=== PATIENT | female | born 1990 | race Caucasian/White ===

== ENCOUNTER → 2016-09-19 07:00 | Day surgery (SDC) | payer OTHER ==
[2016-09-19 06:34] LABS: Manual Entry Verification CAR0052; UR Preg Internal Control QC Line Present; UR Preg Kit Lot# 6060104
[~2016-09-19 07:00] MED LIST: Buffered Lidocaine 1% SYR 3ML* 3 ML/SYR SYRINGE INTRADERM ONE; Buffered Lidocaine 1% SYR 3ML* 3 ML/SYR SYRINGE ONE; DiMENhydriNATE IV* 50 MG/ML VIAL IV PUSH PRN; DiMENhydriNATE IV* 50 MG/ML VIAL ONE; Famotidine IV* 10 MG/ML 2 ML (20 mg) IV ONE; Famotidine IV* 10 MG/ML 2 ML (20 mg) ONE; HYDROcodone/ACETAMIN 5-325 MG* 1 TAB ONE; Ibuprofen TAB* 400 MG ONE; Ibuprofen TAB* 400 MG PO ONE; Lidocaine 2% MPF* 2 ML VIAL ONE; Metoclopramide TAB* 10 MG ONE; Metoclopramide TAB* 10 MG PO ONE; Propofol* 10 MG/ML 20 ML BTL IV PUSH ONE; Sodium Citrate/Citric Acid* 15 ML UDC ONE; Sodium Citrate/Citric Acid* 15 ML UDC PO ONE; ceFAZolin 2 GM PREMIX (*) 2 GM/50 ML BAG IVPB ONE; fentaNYL* 50 MCG/ML 2 ML VIAL (100 MCG VIAL) ONE; oxyCODONE/Acetamin 5/325 MG* TAB PO PRN
[2016-09-19] MEDS: fentaNYL* 50 MCG/ML 2 ML VIAL (100 MCG VIAL) IV PRN ×2 (09:23→09:35)
[2016-09-19 10:23] VITALS: BP 98/84
--- NOTE | 2016-09-21 15:26 | OP ---
OPERATIVE NOTE: DATE OF OPERATION: 09/19/16 DATE OF : 89 SURGEON: Lenin Keith MD. PMO CONSULTANT: DELANEY Padilla. ANESTHESIA: General anesthesia. PRE-OP DIAGNOSIS: Left cubital tunnel syndrome. POST-OP DIAGNOSIS: Left cubital tunnel syndrome. OPERATIVE PROCEDURE: Left ulnar nerve in situ decompression, cubital tunnel. 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 The patient's history goes back to 2011, at which point she bumped the medial aspect of her left elb ow against a washing machine. The patient was seen by Dr. Roy, who diagnosed her with an ulnar nerve contusion. She was treated with splinting, NSAIDs, and Neurontin. The pain bothered her long enough that an EMG was ordered, which showed no changes. Eventually, the patient's symptoms of numb ness and tingling resolved. However, the patient then presented to me in the of 2015 with 12 months of recurrence of these symptoms, namely numbness of the small finger, left. We treated the patient with nighttime splinting and NSAIDs without any improvement. I did prescribe the patient a Medrol Dosepak, which made these symptoms disappear entirely while she was on it for 6 days. As julianna n as she came off it, the symptoms returned. The patient's symptoms were bad enough that she was dr opping objects. She denied any neck or wrist pain, but did describe medial elbow pain. Physical ex am demonstrated a positive cubital tunnel Tinel's sign. She also had a positive elbow flexion test. She had some generalized tenderness to palpation about the cubital tunnel. She also had medial epi condyle tenderness to palpation, but that was symmetric with contralateral right elbow medial epicon dyle tenderness to palpation. She had no tenderness to palpation of the tendons, proximal on the me dial aspect of the elbow, and no pain with resisted wrist flexion, finger flexion, or forearm pronat ion. EMG nerve conduction did not show any changes. On exam, she had decreased sensation to light about the small finger as well as the ulnar aspect of the hand and inconsistent decrease sensation a bout the ulnar aspect of the ring finger. However, with 2 point discrimination testing, there was a subtle difference between the small finger and remainder of her fingers. Her 2-point discrimination was approximately 4 mm on the other fingers of that left hand versus about 5 mm of the small finger . The patient opted for surgical management. We discussed the benefits, risks, and possible compli cations of the surgery including the nerve and blood vessel injury. The patient had negative Spurli ng's test and no pain with full range of motion of the neck and no tenderness to palpation in the Gu yon's tunnel in the left wrist. ANTIBIOTICS: Ancef 2 g IV. IV FLUIDS: Please see anesthesia note. TOURNIQUET TIME: Approximately 43 minutes at 250 mmHg. ESTIMATED BLOOD LOSS: Minimal. COMPLICATIONS: None. SPECIMENS: None. IMPLANTS: None. DESCRIPTION OF PROCEDURE: Preoperative written consent. Operative extremity was marked in preopera tive holding. The patient was taken back to the operating room and sedated and intubated on the str etcher lying supine in the operating room. A hand table was attached. A non-sterile proximal upper arm tourniquet was placed. The left upper extremity was prepped and draped. Surgical time-out was performed. A big towel bump was placed under the medial aspect of the left elbow and the elbow was f lexed to 90 degrees and the forearm supinated. Esmarch was applied and the tourniquet was elevated to 250 mmHg. A skin incision was marked, centered about the elbow, midway between the medial epicon dyle and the olecranon tip. This was 7 cm in length, as measured at the end of the operation. Skin and superficial most subcutaneous tissue were incised with a #15 blade. Spreading dissection with scissors was then used to spread more deep towards the ulnar nerve, which was palpated. Medial ante brachial cutaneous nerve was looked for in the distal aspect of the incision, but was not encountere d. I dissected down to the ulnar nerve. Visualized Lee's ligament. There was some thickening a bout the Lee's ligament and the roof of the cubital tunnel itself. Using scissors, I incised th e Lee's ligament and the roof of the cubital tunnel. No obvious flattening or distortion of the nerve, although there was seeming increased vascularity compared to average. I decompressed proxim ally up to the arcade of [place]. I decompressed distally to the point where the nerve dove betwe en the 2 heads of the FCU. The nerve was clearly decompressed from 5 cm proximal to 5 to 7 cm dista l to the medial epicondyle. I passively ranged the forearm and there was no subluxation whatsoever of the ulnar nerve. Therefore, there was no need for an anterior subcutaneous transposition of the ulnar nerve irrigation. Irrigation. Bipolar had been used may be once during the case for a tiny v essel and was not required at this point, as there was no bleeding whatsoever. The subcutaneous tis rocael was closed with buried simple stitches using Vicryl 3-0 suture. The subcuticular layer was clos ed with a running stitch using Monocryl 4-0 suture. Steri-Strips were then placed without benzoin. Xeroform followed by 4x4s, followed by ABD, followed by sterile Webril. Much sterile Webril was us ed followed by two 4-inch James bandages. The tourniquet was dropped. The patient was provided with a simple sling for comfort. The patient was awakened, extubated, and brought to the PACU. DISPOSITION: The patient was to be discharged home when medically stable. My instructions to the p atient were to remove the sling in the next several hours after the procedure when she was comfortab le. The patient had no limitations with the left upper extremity with the exception of no lifting m ore than 10 pounds. We prescribed Percocet for pain control and Keflex 7-day course for infection p rophylaxis. The patient will follow up with me in clinic in 10 to 14 days postoperatively for a wou nd check. [id number]/[id number] #: [id number]
== END | disposition home or self-care (01) ==
LOC: OR 07:00
PROVIDERS: ATTEND Orthopaedic Surgery
DX: G56.22 Lesion of ulnar nerve, left upper limb (principal)
CPT/HCPCS: 81025; A9270-GY; J0690; J1240; J2704; J3010

== ENCOUNTER 2018-04-12 16:36 | Emergency (ER) | payer OTHER ==
[2018-04-12 17:02] VITALS: BP 103/75
[2018-04-12] MEDS ORDERED: Meclizine TAB* 12.5 MG PO ONE (17:12)
--- NOTE | 2018-04-12 17:12 | UC ---
Dizzy HPI HPI Summary: 27 yo female presents with dizziness. 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 [place] like the room was spinning. She went to lay down and ended up falling asleep for an hour or so. When she woke up she was still dizzy. Her boyfriend then brought her to . Currently she tells me that her dizziness is improving, but still present. She took her first dose of progesterone today for infertility treatments about 3 hours before the dizziness began. She denies headache, vision changes, weakness, numbness, tingling, pain, SOB, chest pain, n/v. - History Of Current Complaint Chief Complaint: UCDizziness Stated Complaint: DIZZINESS Time Seen by Provider: 04/12/18 17:11 Hx Obtained From: Patient Hx Last Menstrual Period: 03/30/18 Onset/Duration: Sudden Onset Severity Currently: None Pain Intensity: 0 - Allergies/Home Medications Allergies/Adverse Reactions: Allergies Allergy/AdvReac Type Severity Reaction Status Date / Time Adhesive Tape Allergy REDNESS, Verified 04/12/18 17:02 ITCHY egg Allergy Heartburn Verified 04/12/18 17:02 Milk Containing Products Allergy Heartburn Verified 04/12/18 17:02 onion Allergy Heartburn Verified 04/12/18 17:02 peanut Allergy Heartburn Verified 04/12/18 17:02 wheat Allergy Heartburn Verified 04/12/18 17:02 RYE Allergy Severe Heartburn Uncoded 04/12/18 17:02 Home Medications: Home Medications Progesterone, Micronized [Progesterone] 1 tab PO BID 04/12/18 [History Confirmed 04/12/18] PMH/Surg Hx/FS Hx/Imm Hx - Additional Past Medical History Additional PMH: None Previously Healthy: Yes - Surgical History Surgical History: Yes Surgery Procedure, Year, and Place: tonsillectomy; mole removal FOOT AND RIGHT ARM, 05/19; nasal fractures repaired,X2 , EAR TUBES 1993, wisdom teeth, 2005, laparoscopic cystectomy 12/03/17 - Family History Known Family History: Positive: None - Social History Occupation: Employed Full-time Lives: With Family Alcohol Use: Rare Alcohol Amount: 1 PER MONTH Substance Use Type: None Smoking Status (MU): Never Smoked Tobacco Have You Smoked in the Last Year: No Review of Systems Constitutional: Negative Skin: Negative Eyes: Negative ENT: Negative Respiratory: Negative Cardiovascular: Negative Gastrointestinal: Negative Genitourinary: Negative Motor: Negative Neurovascular: Negative Musculoskeletal: Negative Neurological: Other - Dizziness Psychological: Negative All Other Systems Reviewed And Are Negative: Yes Physical Exam - Summary Physical Exam Summary: GENERAL: NAD. WDWN. No pain distress. SKIN: No rashes, sores, or open wounds. HEENT: Head: AT/NC Eyes: PERRLA. EOM intact. Conjunctiva clear without inflammation or discharge. No nystagmus. Ears: Hearing grossly normal. TMs intact, no bulging, erythema, or edema. Nose: Nasal mucosa pink and moist. NTTP maxillary and frontal sinus. Throat: Posterior oropharynx without exudates, erythema, or tonsillar enlargement. Uvula midline. NECK: Supple. Nontender. No lymphadenopathy. CHEST: CTAB. No r/r/w. No accessory muscle use. Breathing comfortably and in no distress. CV: RRR. Without m/r/g. Pulses intact. Brisk cap refill. ABDOMEN: Soft. NTTP. No distention or guarding., No organomegaly. No CVA tenderness. Bowel sounds present MSK: FROM in B/L UEs and LEs with symmetric strength. NEURO: A&Ox3. 3 word recall, remote, recent memory, ability to follow 2-step directions, and attention intact. CN II XII grossly intact. Kxherp-zc-yeeg are intact. Gait with normal base. Romberg: maintains balance, no pronator drift. Normal speech. No facial drooping. PSYCH: Age appropriate behavior. Triage Information Reviewed: Yes Vital Signs: Initial Vital Signs Temp 98.1 F 04/12/18 16:59 Pulse 89 04/12/18 16:59 Resp 18 04/12/18 16:59 BP 103/75 04/12/18 16:59 Pulse Ox 100 04/12/18 16:59 Laboratory Tests 04/12/18 04/12/18 17:43 17:54 POC Glucose (mg/dL) 101 H POC Urine Color Yellow POC Urine Clarity Clear POC Urine pH 7.0 POC Ur Specif [place] 1.015 POC Urine Protein Negative POC Ur Glucose (UA) Negative POC Urine Ketones Negative POC Urine Blood Trace-intact A POC Urine Nitrite Negative POC Urine Bilirubin Negative POC Urine Urobilinogen 0.2 POC U Leukocyte Esteras Negative Vital Signs Reviewed: Yes Dizzy Course/Dx - Course Course Of Treatment: EKG 72bpm NSR No ST changes as read by Dr. Smith. Glucose WNL. POSITIVE test. UA negative. Meclizine was givin in the clinical course. Pt reported still improving dizziness. She tells me that she is on medication and has had positive tests in the past that were false positive - she gets routine blood work from her fertility doctor out of [place]. I suspect her dizziness is related to her new medication that she started earlier today. I advised her to contact the doctor of out [place] that prescribed this medication to discuss her adverse reaction and her positive test. Pt was agreeable with plan. - Differential Dx/Diagnosis Provider Diagnoses: Dizziness Discharge - Sign-Out/Discharge Documenting (check all that apply): Patient Departure - Discharge Plan Condition: Stable Disposition: HOME Patient Education Materials: Dizziness (ED) Forms: *Work Release Referrals: No Primary Care Phys,NOPCP [Primary Care Provider] - Additional Instructions: If you develop a fever, shortness of breath, chest pain, new or worsening symptoms - please call your PCP or go to the ED. 1) I believe your dizziness that you experienced today is due to your new medication - please call the doctor that prescribed this for you to discuss if you should continue this - Billing Disposition and Condition Condition: STABLE Disposition: Home
== END 2018-04-12 18:05 | disposition home or self-care (01) ==
LOC: UCEAST 16:36
DX: R42 Dizziness and giddiness (principal); Z91.012 Allergy to eggs; Z91.011 Allergy to milk products; Z91.010 Allergy to peanuts; Z91.018 Allergy to other foods; Z91.048 Other nonmedicinal substance allergy status
CPT/HCPCS: 81003; 84702; 93005; 99212; A9270-GY; G0463

== ENCOUNTER 2019-05-26 18:08 | Inpatient (IN) | payer OTHER ==
[2019-05-26] MEDS ORDERED: Lactated Ringers 1000 ML Bag* 1,000 ML IV ONE (19:50)
[2019-05-26] MEDS ORDERED: Promethazine INJ(RESTRICTED)* 25 MG/ML 1 ML VIAL IV ONE (19:50)
[2019-05-26] MEDS ORDERED: Buffered Lidocaine 1% SYRIN* 1 ML/SYRINGE INTRADERM ONE (19:50)
[2019-05-26] MEDS ORDERED: Nalbuphine* 10 MG/ML 1 ML VIAL IV ONE (19:50)
[2019-05-26] MEDS ORDERED: Dinoprostone* 10 MG VAG.SUPP VAGINAL ONE (19:50)
--- NOTE | 2019-05-26 19:58 | HP ---
General Information - Reason for Visit Here for ripening/IOL for IVF - General Information Maternal Age: 28 Grav: 1 Para: 0 SAB: 0 IEA: 0 Estimated Due Date: 05/22/19 Determined By: LMP Gestational Age in Weeks/Days: 40 12/12 Maternal Blood Type and Rh: A Positive - Results this Serology/RPR Result: Non-Reactive Rubella Result: Immune HBsAg Result: Negative HIV Result: Negative GBS Culture Result: Negative Past Medical History Delivery History: See Records Delivery History Comment: no prior deliveries Pertinent Past Medical History: See Records Past Medical History Comment: Food allergies - milk, wheat, onion, peanut Ulcers - eosiniphilic esophagitic Endometriosis PCOS Pertinent Past Surgical History: See Records Past Surgical History Comment: Bilateral myringotomy -1993 Tonsillectomy - 07/2008 [place] tooth extraction Nose surgery x 2 Mole removal - 2007, 2011, 2012 Left elbow, nerve damage repair - 09/2016 Laparascopic hysteroscopy - 2016 (endometriosis) Pertinent Family History: See Records Family History Comment: Mother: asthma, ulcers, thyroid disease - Antepartal Records Antepartal Records: Reviewed, Complicated by: - IVF , rubella nonimmune Review of Systems Constitutional: Comfortable CV Complaint: No Respiratory: Shortness of Breath: No Gastrointestinal: No Nausea/Vomiting, Normal Bowel Movement Genitourinary: No Dysuria, No Bleeding, No Leaking Fluid Musculoskeletal: No Epigastric Pain Neurological: No Visual Changes, Headache - described as mild. has not taken anything for it Movement: Normal Exam Allergies/Adverse Reactions: Allergies Adhesive Tape Allergy (Verified 05/26/19 19:33) REDNESS, ITCHY egg Allergy (Verified 05/26/19 19:33) Heartburn Milk Containing Products Allergy (Verified 05/26/19 19:33) Heartburn onion Allergy (Verified 05/26/19 19:33) Heartburn peanut Allergy (Verified 05/26/19 19:33) Heartburn wheat Allergy (Verified 05/26/19 19:33) Heartburn RYE Allergy (Severe, Uncoded 05/26/19 19:33) Heartburn B/P: 129/85, P: 90, R: 16, T: 99.3 - Measurements Height: 5 ft 4 in Weight: 143 lb Weight in lbs: [id number] Body Mass Index (BMI): 24.5 Pre- Weight: 114 lb Weight Gained This : 29 lbs and 0 ozs - Exam Breast: Breast Exam Deferred CVA: No CVA Tenderness Extremities: No Edema Heart: Normal Rhythm/Heart Sounds HEENT: No Significant Findings Lungs: Clear Bilaterally Reflexes: DTR 2+ Thyroid: No Thyromegaly - Abdominal Exam Abdomen Exam: Non-Tender, Fundal Height Consistent with Dates - Ultrasound/Biophysical Profile Ultrasound Status: Not Done Targeted Exam Findings See L&D Outpatient Visit Provider Note for Findings: N/A Estimated Weight: 7.5 lb by josefina'chadwick Cervical Exam: Fingertip Effacement: 50% Station: -1 Presenting Part: Vertex Membrane Status: Intact Bleeding/Discharge: None EFM Findings - External Monitor Findings Baseline Heart Rate: 120 External Monitor Findings: Accelerations Present, No Pattern of Variable or Late Decelerations, Variability Moderate, Baseline Stable Contractions: None Assessment/Plan - Assessment A: IUP at 40 4/7 weeks Category I FHR, no evidence of metabolic acidemia GBS negative Yee score: 3 P: Admit to inpatient Discussed cervidil for ripening; Mary agrees Therapeutic rest PRN for sleep Reassess as needed Anticipate SVB - Obstetrical Risk Factors Obstetrical Risk Factors: Assisted Reproduction - Plan Plan: Cervical Ripening, Admit - Anticipate Vaginal Delivery
[2019-05-26] MEDS ORDERED: Lactated Ringers 1000 ML Bag* 1,000 ML IV SCH (20:00)
[2019-05-26 21:03] LABS: Urine Benzodiazepine Screen None Detected (None Detect); Urine Opiates Screen None Detected (None Detect)
[2019-05-26] MEDS ORDERED: diPHENhydraMINE PO* 25 MG PO PRN (23:50)
[2019-05-27] MEDS: Calcium Carbonate CHEW TAB* 500 MG (TUMS) PO PRN (00:09)
[2019-05-27] MEDS: Pseudoephedrine TAB* 30 MG PO PRN ×3 (07:48→21:18)
[2019-05-27] MEDS: Misoprostol TAB* 100 MCG PO SCH ×3 (09:29→19:17)
[2019-05-27 21:52] LABS: ABS Basophils 0.1 10^3/ul (0-0.2); ABS Eosinophils 0.2 10^3/ul (0-0.6); ABS Lymphocytes 2.1 10^3/ul (1.0-4.8); ABS Monocytes 0.9 10^3/ul (0-0.8); ABS Neutrophils 8.9 10^3/ul (1.5-7.7); Eosinophil % 1.9 %; Hematocrit 31 % (35-47); Hemoglobin 10.1 g/dL (12.0-16.0); Lymphocyte % 17.1 %; Mean Corpuscular HGB Conc 32 g/dL (31-36); Mean Corpuscular Hemoglobin 24 pg (27-31); Mean Corpuscular Volume 75 fL (80-97); Mean Platelet Volume 8.7 fL (7.4-10.4); Platelet Count 235 10^3/uL (150-450); Red Blood Count 4.15 10^6 /uL (3.70-4.87); Red Cell Distribution Width 15 % (10-15); White Blood Count 12.1 10^3/uL (3.5-10.8)
--- NOTE | 2019-05-27 22:22 | PN ---
Progress Note - Progress Note Date of Service: 05/27/19 Note: S: Pt resting in bed. Comfortable. Feeling slight crampy. O: VSS FHR: 125, moderate variability, no accelerations, no decelerations UCs: palpate mild, good resting tone VE: FT/50/-2 A: IUP at 40+5 weeks no evidence of metabolic acidemia not in active labor P: Cervidil removed No cervical change PARQ discussion about Cytotec. Pt in agreement with plan. Will start with Cytotec, 50mcg, PO. Monitoring per protocol Anticipate progression to active labor
--- NOTE | 2019-05-27 22:55 | PN ---
Progress Note - Progress Note Date of Service: 05/27/19 Note: S: Pt resting in bed. Comfortable. Feeling slight crampy. O: VSS FHR: 130, moderate variability, no accelerations, no decelerations UCs: 3-5, palpate moderate, good resting tone VE: FT/50/-2 A: IUP at 40+5 weeks no evidence of metabolic acidemia not in active labor P: VE deferred Second dose of Cytotec, 50mcg, PO. Monitoring per protocol Anticipate progression to active labor
--- NOTE | 2019-05-27 22:57 | PN ---
Progress Note - Progress Note Date of Service: 05/27/19 Note: S: Pt resting in bed. Uncomfortable. O: VSS FHR: 120, moderate variability, no accelerations, no decelerations UCs: 2-4mins, palpate moderate, good resting tone VE: 60/-2 A: IUP at 40+5 weeks no evidence of metabolic acidemia not in active labor P: Making cervical change PARQ discussion about Pitocin. Pt in agreement with plan. Will start low- dose Pitocin Monitoring per protocol Anticipate progression to active labor
--- NOTE | 2019-05-27 22:59 | PN ---
Progress Note - Progress Note Date of Service: 05/27/19 Note: S: Pt on the yoga ball. Reports regular contractions. O: VSS FHR: 130, moderate variability, no accelerations, no decelerations UCs: palpate moderate, good resting tone VE: 80/-1 A: IUP at 40+5 weeks no evidence of metabolic acidemia not in active labor P: Making cervical change Start Pitocin as staffing allows Monitoring per protocol Anticipate progression to active labor
[2019-05-28] MEDS: Oxytocin in LR* 20 UNITS/1,000 ML BAG IVPB SCH ×2 (00:53→09:30)
[2019-05-28] MEDS: Pseudoephedrine TAB* 30 MG PO PRN ×3 (06:35→21:02)
--- NOTE | 2019-05-28 07:04 | PN ---
Progress Note - Progress Note Date of Service: 05/28/19 Note: S: Pt just woke-up. Reports more uncomfortable contractions. Reports constant back pain. Frustration that induction is moving slowly. O: VSS FHR: 130, moderate variability, no accelerations, no decelerations UCs: occasional contraction. palpate moderate, good resting tone VE: 1/80/-1 Pitocin up to 20mU, turned off A: IUP at 40+6 weeks no evidence of metabolic acidemia not in active labor P: No cervical change overnight Pt to eat, shower. IOL to resume after. Report given to Megan Kapoor CNM who will assume care at 0800. Anticipate progression to active labor
--- NOTE | 2019-05-28 08:32 | PN ---
Progress Note - Progress Note Date of Service: 05/28/19 Note: Pt feeling fairly well, no ctx at this time. Slept well last night. Feeling somewhat frustrated and discouraged with length of IOL. Reports active FM. Discussed options for going forward. Pt has had misoprostol x2, Cervidil, and Pitocin. Per most recent cervical exam, pt is 1cm. Recommend Cook catheter with Pitocin. Pt in agreement with plan, would like to eat breakfast prior to placement of catheter, then try to sleep some more.
--- NOTE | 2019-05-28 09:29 | PN ---
Progress Note - Progress Note Date of Service: 05/28/19 SOAP: Subjective: Pt ate breakfast, feeling sleepy but ready to continue IOL. Really hoping baby will be born today or tomorrow. Objective: Cervix: 1cm/ 100%/ -1/ vtx Membranes intact FHR: Baseline 125/ moderate variability/no accels/ no decels UCs: mild, about every 5 minutes BP: 119/83, Temp: 98.3 Assessment: 28 year old at 40 6/7 weeks gestation, GBS negative, undergoing elective IOL d/t IVF and will be 41 weeks tomorrow. No evidence of acidemia. Plan: Cook catheter placed, inflated to 40cc/ balloon. Pt uncomfortable, but tolerated well. Will start low dose Pitocin. Pt requests pain medication if restarting Pitocin, will do Nubain and Phenergan again. Will continue to increase balloon inflation as tolerated.
[2019-05-28] MEDS ORDERED: Promethazine INJ(RESTRICTED)* 25 MG/ML 1 ML VIAL IV ONE (09:42)
[2019-05-28] MEDS ORDERED: Nalbuphine* 10 MG/ML 1 ML VIAL IV ONE (09:42)
--- NOTE | 2019-05-28 12:38 | PN ---
Progress Note - Progress Note Date of Service: 05/28/19 SOAP: Subjective: Pt sleeping in bed, has been up to the bathroom a couple times, was comfortable per RN. Objective: Pitocin at 10 mu/min Cook catheter in place FHR: Baseline 125/ moderate variability/ + accels/ no decels UCs: 3-5 minutes, moderate Assessment: Pt undergoing IOL, appears to be responding to Pitocin but still comfortable. FHR with no evidence of acidemia. Plan: Continue Pitocin augmentation. Continue to inflate cook catheter balloons as tolerated until max of 80 cc/ balloon.
--- NOTE | 2019-05-28 14:53 | PN ---
Progress Note - Progress Note Date of Service: 05/28/19 SOAP: Subjective: Pt reports ctx increasing in intensity, still coping well. Objective: FHR: Baseline 130/ moderate variability/ + accels/ no decels UCs: 2-4 minutes, mild to moderate Pitocin at 14 mu/min Cook catheter still in place Assessment: Pt coping well. No evidence of acidemia or chorioamnionitis. Plan: Continue Pitocin augmentation. Pt to use tub for pain relief at this time.
--- NOTE | 2019-05-28 16:49 | PN ---
Progress Note - Progress Note Date of Service: 05/28/19 SOAP: Subjective: Pt reports ctx somewhat more uncomfortable, coping well. Has been sitting on ball and using tub for pain relief. at bedside. Objective: FHR: Baseline 135/ moderate variability/ + accels/ no decels UCs: 2-4 minutes Pitocin at 18 mu/min Membranes intact Cook catheter in place Assessment: Pt appears to be getting more uncomfortable, coping well. No evidence of acidemia. Plan: Continue Pitocin induction. Remove Cook Catheter at 2100 if it does not fall out prior.
[2019-05-28] MEDS ORDERED: OBEPIDURAL* 250 ML EPIDURAL ONE (21:21)
--- NOTE | 2019-05-28 21:37 | PN ---
Progress Note - Progress Note Date of Service: 05/28/19 SOAP: Subjective: Pt increasingly uncomfortable, requests epidural. Previously reported suspected AROM, examined, found to be bloody show. Objective: Cervix: 5cm/ 100%/ 0 station FHR: Baseline 140/ moderate variability/ + accels/ no decels UCs: 2-3 minutes Pitocin at 24 mu/min Temp: 98.3, BP- 113/73 Assessment: Pt making good progress. No evidence of acidemia. Plan: Epidural for pain relief. Continue Pitocin augmentation. Anticipate progression to .
[2019-05-28 22:04] LABS: Hematocrit 31 % (35-47); Hemoglobin 10.1 g/dL (12.0-16.0); Mean Corpuscular HGB Conc 33 g/dL (31-36); Mean Corpuscular Hemoglobin 25 pg (27-31); Mean Corpuscular Volume 76 fL (80-97); Mean Platelet Volume 8.7 fL (7.4-10.4); Platelet Count 210 10^3/uL (150-450); Red Blood Count 4.07 10^6 /uL (3.70-4.87); Red Cell Distribution Width 15 % (10-15); White Blood Count 10.9 10^3/uL (3.5-10.8)
[2019-05-28] MEDS ORDERED: Lidocaine 2% w/ EPI 1:200,000* 20 ML SDV VIAL ONE ×2 (22:23→22:40)
[2019-05-28] MEDS ORDERED: Phenylephrine 40 MCG/ML SYRINGE IV PUSH PRN ×2 (22:47)
[2019-05-28] MEDS ORDERED: Sodium Citrate/Citric Acid* 15 ML UDC PO PRN (22:47)
[2019-05-28] MEDS ORDERED: Lactated Ringers 1000 ML Bag* 1,000 ML IV ONE (22:47)
[2019-05-28] MEDS ORDERED: Famotidine TAB* 20 MG PO PRN (22:47)
[2019-05-28] MEDS ORDERED: Lactated Ringers 1000 ML Bag* 500 ML IV PRN ×2 (22:47)
[2019-05-28] MEDS ORDERED: Lactated Ringers 1000 ML Bag* 1,000 ML IV SCH ×2 (23:00)
[2019-05-28] MEDS ORDERED: OBEPIDURAL* 250 ML EPIDURAL SCH (23:00)
[2019-05-28] MEDS: Calcium Carbonate CHEW TAB* 500 MG (TUMS) PO PRN (23:00)
--- NOTE | 2019-05-29 02:51 | PN ---
Progress Note - Progress Note Date of Service: 05/29/19 SOAP: Subjective: Pt comfortable with epidural. Has been sleeping intermittently. Denies headache , vision changes, abdominal pain. Objective: FHR: Baseline 130/ minimal variability/ no accels/ early decels UCs:Q 3 minutes Temp: BP: 136/78 (most recent). Had several BPs elevated, as high as 151/88, while lying on right side. Cervix: 5cm/ 100%/ -1/ vtx Pitocin at 24 mu/min Assessment: Pt with minimal progress since last exam, FHR Category II at this time. Pt with elevated BPs. Plan: Will check PEC labs. When pt positioned on left side BPs much better. AROM performed to clear fluid. If minimal progress by next exam will consider IUPC.
[2019-05-29 02:54] LABS: ABS Basophils 0.1 10^3/ul (0-0.2); ABS Eosinophils 0.1 10^3/ul (0-0.6); ABS Lymphocytes 1.7 10^3/ul (1.0-4.8); ABS Monocytes 0.7 10^3/ul (0-0.8); ABS Neutrophils 8.4 10^3/ul (1.5-7.7); Eosinophil % 1.1 %; Hematocrit 30 % (35-47); Hemoglobin 9.6 g/dL (12.0-16.0); Lymphocyte % 15.6 %; Mean Corpuscular HGB Conc 32 g/dL (31-36); Mean Corpuscular Hemoglobin 24 pg (27-31); Mean Corpuscular Volume 75 fL (80-97); Mean Platelet Volume 8.7 fL (7.4-10.4); Platelet Count 195 10^3/uL (150-450); Red Cell Distribution Width 15 % (10-15)
[2019-05-29 03:01] LABS: Urine Appearance Clear; Urine Bacteria Absent (Absent); Urine Bilirubin Negative (Negative); Urine Blood 1+ (Negative); Urine Color Straw; Urine Glucose Negative (Negative); Urine Ketones Negative (Negative); Urine Nitrite Negative (Negative); Urine Protein Negative (Negative); Urine Red Blood Cell Trace(0-2/hpf) (Absent); Urine Specific Gravity 1.005 (1.010-1.030); Urine Urobilinogen Negative (Negative); Urine White Blood Cell Absent (Absent)
[2019-05-29 03:05] LABS: Albumin 2.8 g/dL (3.2-5.2); Albumin/Globulin Ratio 1.1 (1-3); BUN/Creatinine Ratio 6.7 (8-20); Globulin 2.6 g/dL (2-4); Potassium 3.9 mmol/L (3.5-5.0); Total Bilirubin 0.4 mg/dL (0.2-1.0); Total Protein 5.4 g/dL (6.4-8.9); Uric Acid 4.6 mg/dL (2.3-6.6)
[2019-05-29] MEDS ORDERED: Lidocaine 2% w/ EPI 1:200,000* 20 ML SDV VIAL ONE ×2 (04:11→07:23)
--- NOTE | 2019-05-29 04:33 | PN ---
Progress Note - Progress Note Date of Service: 05/29/19 SOAP: Subjective: Pt reports increased pain with ctx, tearful. Difficulty coping. Objective: Cervix: 6cm/ 100%/ 0 station/ vtx PEC labs unremarkable FHR: Baseline 130, moderate variability/ no accels/ no decels UCs: 3-4 Pitocin at 24 mu/min Fluid clear/ bloody show Assessment: Pt making progress, but no longer comfortable. No evidence of acidemia or chorioamnionitis. Plan: Dr. Champagne notified, will come to bedside to assess pt. If progress continues will continue with Pitocin at current rate. If progress stalls will consider Pitocin break x 1 hr then restarting high dose Pitocin.
--- NOTE | 2019-05-29 04:52 | PN ---
Progress Note - Progress Note Date of Service: 05/29/19 Note: Dr. Champagne saw pt to bolus epidural. Pt now reports total relief of pain, Resting in bed.
[2019-05-29] MEDS ORDERED: Acetaminophen TAB* 325 MG PO ONE (08:24)
--- NOTE | 2019-05-29 08:39 | PN ---
Progress Note - Progress Note Date of Service: 05/29/19 SOAP: Subjective: Pt had increased pain again, epidural bolused by Dr. Champagne, now with far less discomfort. Objective: FHR: Currently baseline 145/ moderate variability/ + accels/ no decels (was baseline 160, minimal variability/no accels/ no decels) UCs: 4-5 minutes Cervix: 7cm/ 100%/ 0 station Temp: most recent 99.2 (highest was 100.3) Fluid clear Assessment: Pt currently with no evidence of acidemia or chorioamnionitis, was experiencing elevated temp and rising baseline, now resolved. Dilation slow. Pain level intolerable to pt. Plan: Consulted with Dr. Castro. He recommended placing IUPC. After discussing with pt in detail she agreed and IUPC placed. Discussed concerns regarding temp, FHR , fatigue level, rate of dilation, inadequate pain relief. Consulted with Dr. Cano. He will evaluate pt. Pitocin was reduced to half during previous episode of pain with bolus. If pain level can be controlled will increase Pitocin to attempt to achieve adequate MVUs. Will closely monitor pt temp and FHR.
[2019-05-29] MEDS ORDERED: Bupivacaine 0.25% SDV PF* 10 ML VIAL INJ ONE (08:45)
[2019-05-29] MEDS ORDERED: OBEPIDURAL* 250 ML EPIDURAL ONE (09:42)
--- NOTE | 2019-05-29 10:49 | PN ---
Progress Note - Progress Note Date of Service: 05/29/19 SOAP: Subjective: Pt had epidural replaced, still having a lot of pain. Very tearful. Reports pain "in my belly and in my back." Pt assisted into hands and knees position which she reports helps a little. Objective: FHR: Baseline 145/ moderate variability/ + accels/ no decels MVUs: 85 Pitocin at 15 mu/min BP: 129/68 Temp: 98.9 Fluid clear Cervix: 8cm/ 100%/ +1 some caput Assessment: FHR now Category I, no evidence of acidemia or chorioamnionitis. Temp stablized. Pt with difficulty coping despite three epidural boluses and total replacement of epidural. Plan: Pt counseled on options for proceeding forward. At this time, she appears to be making progress, FHR is Category I and temp is stable. However, pain level may be intolerable for her. If so will consult with Dr. Castro about option for delivery.
--- NOTE | 2019-05-29 12:14 | PN ---
Progress Note - Progress Note Date of Service: 05/29/19 SOAP: Subjective: Pt very uncomfortable, tearful, weeping. Vomited x1. Nora RN providing bedside support, at bedside as well. Objective: Cervix: 9cm/ 100%/ vtx/ +1 FHR: Baseline 145/ Minimal variability/no accels/ no decels UCs: MVUs now 155 BP:143/74 Temp:99.7 Fluid clear Assessment: Pt continues to make progress. FHR tracing now Category II again. No evidence of chorioamnionitis. Difficulty coping with ctx. Plan: Encourage pt to continue to labor. Continue to use bolus button. Continue Pitocin.
[2019-05-29] MEDS ORDERED: ceFOXitin 2 GM IVPREMIX* 2 GM/50 ML BAG IVPB ONE (14:11)
[2019-05-29] MEDS ORDERED: Famotidine IV* 10 MG/ML 2 ML (20 mg) ONE (14:12)
[2019-05-29] MEDS ORDERED: ceFOXitin 2 GM IVPREMIX* 2 GM/50 ML BAG ONE (14:12)
[2019-05-29] MEDS ORDERED: fentaNYL* 50 MCG/ML 2 ML VIAL (100 MCG VIAL) ONE (14:21)
[2019-05-29] MEDS ORDERED: Midazolam* 1 MG/ML 5 ML VIAL (5 MG) ONE (14:21)
[2019-05-29] MEDS ORDERED: KETAMINE HCL* 50 MG/ML 10 ML VIAL ONE (14:21)
[2019-05-29] MEDS ORDERED: Morphine PF AMP (0.5MG/ML)* 5 MG/10 ML AMP ONE (14:21)
[2019-05-29] MEDS ORDERED: Scopolamine 1.5 mg* PATCH TRANSDERM PRN (14:23)
[2019-05-29] MEDS ORDERED: fentaNYL* 50 MCG/ML 2 ML VIAL (100 MCG VIAL) IV PRN (14:23)
[2019-05-29] MEDS ORDERED: Naloxone* 0.4 MG/ML 1 ML VIAL IV PRN ×2 (14:23→15:04)
[2019-05-29] MEDS ORDERED: Scopolamine 1.5 mg* PATCH ONE (14:24)
[2019-05-29] MEDS ORDERED: Famotidine IV* 10 MG/ML 2 ML (20 mg) IV ONE (14:27)
[2019-05-29] MEDS ORDERED: Carboprost Tromethamine* 250 MCG INJ ONE (15:03)
[2019-05-29] MEDS ORDERED: PROCHLORPERAZINE INJ 5 MG/ML 2 ML VIAL IV PRN (15:04)
[2019-05-29] MEDS ORDERED: Naloxone* 2 MG in NS 0.9% 250 ML* 250 ML IV PRN (15:04)
[2019-05-29] MEDS ORDERED: DiMENhydriNATE IV* 50 MG/ML VIAL IV PUSH PRN (15:04)
[2019-05-29] MEDS ORDERED: oxyCODONE TAB* 5 MG TAB PO PRN (15:04)
[2019-05-29] MEDS ORDERED: diPHENhydraMINE IV* 50 MG/ML 1 ml VIAL (BENADRYL) IV PRN (15:04)
[2019-05-29] MEDS ORDERED: Nalbuphine* 10 MG/ML 1 ML VIAL IV PRN (15:04)
[2019-05-29] MEDS ORDERED: Ondansetron INJ* 2 MG/ML VIAL ONE (15:35)
[2019-05-29] MEDS ORDERED: PROCHLORPERAZINE INJ 5 MG/ML 2 ML VIAL ONE (15:35)
[2019-05-29] MEDS ORDERED: EPHEDrine (Pressors)* 50 MG/ML VIAL ONE (15:35)
[2019-05-29] MEDS ORDERED: Dexamethasone IV* 4 MG/ML 1 ML (4 MG) ONE (15:35)
[2019-05-29] MEDS ORDERED: DiMENhydriNATE IV* 50 MG/ML VIAL ONE (15:35)
[2019-05-29] MEDS ORDERED: Ketorolac INJ* 30 MG/ML 1 ML VIAL ONE (15:35)
[2019-05-29] MEDS ORDERED: Phenylephrine 40 MCG/ML SYRINGE ONE (15:36)
[2019-05-29] MEDS ORDERED: OXYTOCIN* 10 UNITS/ML 1 ML VIAL ONE (15:37)
[2019-05-29] MEDS ORDERED: Ibuprofen TAB* 600 MG PO PRN (15:46)
[2019-05-29] MEDS ORDERED: oxyCODONE/Acetamin 5/325 MG* TAB PO PRN ×2 (15:46)
[2019-05-29] MEDS ORDERED: Zolpidem TAB* 5 MG PO PRN (15:46)
[2019-05-29] MEDS ORDERED: Glycerin ADULT SUPP PR PRN (15:46)
[2019-05-29] MEDS ORDERED: Dibucaine 1% 28.35 GM TUBE PR PRN (15:46)
[2019-05-29] MEDS ORDERED: Witch Hazel PAD* JAR TOPICAL PRN (15:46)
[2019-05-29] MEDS ORDERED: Lactated Ringers 1000 ML Bag* 1,000 ML IV SCH (16:00)
[2019-05-29] MEDS: Simethicone TAB* 80 MG TAB.CHEW PO SCH ×2 (21:56→22:36)
[2019-05-29] MEDS: Ketorolac INJ* 30 MG/ML 1 ML VIAL IV PRN (21:56)
[2019-05-29] MEDS: Docusate CAP* 100 MG PO SCH (21:57)
[2019-05-30] MEDS: Ketorolac INJ* 30 MG/ML 1 ML VIAL IV PRN ×4 (04:01→23:41)
[2019-05-30 06:00] LABS: Hematocrit 21 % (35-47); Hemoglobin 6.9 g/dL (12.0-16.0); Mean Corpuscular HGB Conc 33 g/dL (31-36); Mean Corpuscular Hemoglobin 24 pg (27-31); Mean Corpuscular Volume 74 fL (80-97); Mean Platelet Volume 8.5 fL (7.4-10.4); Platelet Count 170 10^3/uL (150-450); Red Blood Count 2.83 10^6 /uL (3.70-4.87); Red Cell Distribution Width 15 % (10-15); White Blood Count 20.3 10^3/uL (3.5-10.8)
[2019-05-30 06:26] LABS: ABS Monocytes 1.1 10^3/ul (0-0.8); ABS Neutrophils 18.1 10^3/ul (1.5-7.7); Lymphocyte % 5.2 %
[2019-05-30] MEDS: Ferrous Gluconate TAB* 324 MG TAB PO SCH ×2 (09:50→22:13)
[2019-05-30] MEDS: Docusate CAP* 100 MG PO SCH ×3 (09:51→22:13)
[2019-05-30] MEDS: Simethicone TAB* 80 MG TAB.CHEW PO SCH ×4 (09:51→22:13)
--- NOTE | 2019-05-30 23:36 | OP ---
DATE OF OPERATION: 05/29/19 - ROOM #116 DATE OF : 89 SURGEON: Jacques Castro MD SOLUTION MA[employer]ER SURGEON: Jordan Guerin MD * ANESTHESIA: Spinal. PRE-OP DIAGNOSIS: at 41 weeks with arrest of dilation in labor. POST-OP DIAGNOSIS: at 41 weeks with arrest of dilation in labor. OPERATIVE PROCEDURE: Primary low transverse section. ESTIMATED BLOOD LOSS: 500 cc. SPECIMENS SENT TO PATHOLOGY: Cord blood. FLUIDS: She received 1100 cc of IV crystalloid fluid. URINE OUTPUT: Clear. FINDINGS: Delivery of a female infant with a weight of 8 pounds 11 ounces with Apgars of 9 and 9 over clear fluid. Placenta was grossly intact with a 3- vessel cord noted. The uterus, adnexa, bowel, and bladder were within normal limits and there were no complications. DESCRIPTION OF PROCEDURE: The patient was taken to the operating room where she was identified. She was placed on the operating table where a spinal anesthesia was obtained without difficulty. She was then placed in the supine position with a leftward tilt, prepped and draped in a normal sterile fashion. A Pfannenstiel skin incision was then made with a knife, nicked in the midline and extended laterally with curved Segura scissors. The fascia was then grasped superiorly and inferiorly with Barry clamps and dissected out sharply from the rectus muscle. The rectus muscle was in the midline bluntly. The peritoneum was identified, grasped with pickups, and entered sharply with Metzenbaum scissors. This was then extended superiorly and inferiorly sharply. A bladder blade was inserted into the patient's abdomen. A bladder flap was created using Metzenbaum scissors over which the bladder blade was then reinserted. A low transverse uterine incision was made with a knife and extended laterally with bandage scissors. The 's head was then grasped and delivered atraumatically. The rest of the infant's body was then delivered. The cord was clamped and cut and the infant was handed off to the waiting kelp cutter. Cord bloods were obtained. The placenta was removed manually. The uterus was then exteriorized, cleared of all clots and debris using moist laparotomy sponges. The uterine incision was then closed using 0 Polysorb suture in a running-locked fashion with a second imbricating layer of 0 Polysorb suture with good hemostasis noted. The uterus was then returned to the patient's abdomen. The gutters were then cleared of all clots and debris using moist laparotomy sponges. All the sponges were removed from the patient' s abdomen. The peritoneum was then closed using 3-0 Polysorb suture in a running fashion. The fascia was closed using 0 Polysorb suture in a running fashion and the skin was closed with 4-0 Monocryl subcuticular stitch. Sponge, lap, and needle counts were correct x2. She was then transferred to the recovery room area in stable condition. [id number] #: [id number] MTDD
[2019-05-31] MEDS: Docusate CAP* 100 MG PO SCH ×3 (07:52→20:09)
[2019-05-31] MEDS: Ferrous Gluconate TAB* 324 MG TAB PO SCH ×2 (07:52→20:09)
[2019-05-31] MEDS: Simethicone TAB* 80 MG TAB.CHEW PO SCH ×4 (07:52→20:09)
[2019-05-31] MEDS: Ketorolac INJ* 30 MG/ML 1 ML VIAL IV PRN (07:52)
[2019-05-31] MEDS ORDERED: Measles, Mumps,Rubella VACC* 0.5 ML/VIAL SUBCUT ONE (10:17)
[2019-05-31] MEDS ORDERED: Measles, Mumps,Rubella VACC* 0.5 ML/VIAL ONE (10:21)
[2019-05-31] MEDS: Acetaminophen TAB* 325 MG PO PRN ×2 (11:54→17:22)
[2019-05-31] MEDS: Ibuprofen TAB* 200 MG PO PRN ×2 (13:58→20:09)
[2019-06-01] MEDS: Acetaminophen TAB* 325 MG PO PRN ×2 (02:16→08:10)
[2019-06-01] MEDS: Misoprostol TAB* 100 MCG PO SCH ×3 (07:25→07:29)
[2019-06-01 08:03] VITALS: BP 107/64
[2019-06-01] MEDS: Docusate CAP* 100 MG PO SCH (08:10)
[2019-06-01] MEDS: Simethicone TAB* 80 MG TAB.CHEW PO SCH (08:10)
[2019-06-01] MEDS: Ferrous Gluconate TAB* 324 MG TAB PO SCH (08:10)
[2019-06-01] MEDS: Ibuprofen TAB* 200 MG PO PRN (08:32)
--- NOTE | 2019-06-01 09:00 | PTEDU ---
Patient Name: SIENNA OLIVER SIENNA OLIVER selected video: Never Ever Shake a Baby to view on 06/01/2019 at 8:57:40 AM [facility] [id number]
[2019-06-01] MEDS ORDERED: Scopolamine PATCH Remove* 1 NOTE MISC PATCH OFF ONE (14:23)
== END 2019-06-01 10:45 | disposition home or self-care (01) | DRG 788 ==
LOC: MCHOBOUT 18:08 → MCHOB 20:19
PROVIDERS: ADMIT Midwife; ATTEND Obstetrics & Gynecology
PROC: 4A1HXCZ Monitoring of Products of Conception, Cardiac Rate, External Approach (ICD-10-PCS; 2019-05-29)
PROC: 10H07YZ Insertion of Other Device into Products of Conception, Via Natural or Artificial Opening (ICD-10-PCS; 2019-05-29)
PROC: 10907ZC Drainage of Amniotic Fluid, Therapeutic from Products of Conception, Via Natural or Artificial Opening (ICD-10-PCS; 2019-05-29)
PROC: 3E0P7VZ Introduction of Hormone into Female Reproductive, Via Natural or Artificial Opening (ICD-10-PCS; 2019-05-29)
PROC: 0U7C7ZZ Dilation of Cervix, Via Natural or Artificial Opening (ICD-10-PCS; 2019-05-29)
PROC: 3E033VJ Introduction of Other Hormone into Peripheral Vein, Percutaneous Approach (ICD-10-PCS; 2019-05-29)
PROC: 10D00Z1 Extraction of Products of Conception, Low, Open Approach (ICD-10-PCS; principal; 2019-05-29 14:35)
DX: O48.0 Post-term pregnancy (principal); O90.81 Anemia of the puerperium; O62.1 Secondary uterine inertia; Z3A.40 40 weeks gestation of pregnancy; Z91.010 Allergy to peanuts; Z37.0 Single live birth; Z91.012 Allergy to eggs; Z91.011 Allergy to milk products; Z91.018 Allergy to other foods; Z91.048 Other nonmedicinal substance allergy status
CPT/HCPCS: 36415; 80053; 80307; 81003; 81015; 84550; 85025; 85027; 86850; 86900; 86901; 90707; A9270-GY; J0694; J0780; J1100; J1240; J1885; J2250; J2300; J2405; J2550; J2590; J3010; J3490; S0191